=== PATIENT | male | born 1990 | race Caucasian/White ===

== ENCOUNTER 2022-11-23 03:22 | Emergency (ER) | payer OTHER ==
[~2022-11-23] VITALS: Ht 177.8 cm; Wt 77.1 kg
[2022-11-23 03:46] VITALS: BP 136/82
[2022-11-23] MEDS ORDERED: DOXY100C2 PO (04:54)
== END 2022-11-23 05:54 | disposition home or self-care (01) ==
LOC: ER 03:22
DX: R21 Rash and other nonspecific skin eruption (principal)
CPT/HCPCS: 36415; 86592; 86593; 87806